=== PATIENT | male | born 1950 | race African-American/Black ===

== ENCOUNTER 2018-12-03 16:45 | Inpatient (IN) ==
[2018-12-03] MEDS ORDERED: BISACODYL 5 MG TABLET PO PRN (18:32)
[2018-12-03] MEDS ORDERED: ZALEPLON 5 MG CAPSULE PO PRN (18:32)
[2018-12-03] MEDS ORDERED: PROMETHAZINE 25 MG TABLET PO PRN (18:32)
[2018-12-03] MEDS ORDERED: DOCUSATE SODIUM 100 MG CAPSULE PO PRN (18:32)
[2018-12-03] MEDS ORDERED: diphenhydrAMINE CAP 25 MG CAPSULE PO PRN (18:32)
[2018-12-03] MEDS ORDERED: guaiFENesin/DM ER 600-30 MG TABLET PO PRN (18:32)
[2018-12-03] MEDS ORDERED: ONDANSETRON 4 MG/2 ML VIAL IV PRN ×2 (18:32→19:47)
[2018-12-03] MEDS ORDERED: MAGNESIUM SULF RIDER 4 GM in PREMIX 1 EACH IV PRN ×2 (18:32→19:47)
[2018-12-03] MEDS ORDERED: MAGNESIUM SULF RIDER 2 GM in PREMIX 1 EACH IV PRN ×2 (18:32→19:47)
[2018-12-03] MEDS ORDERED: hydrALAZINE 20 MG/1 ML VIAL IV PRN (18:39)
[2018-12-03 18:48] LABS: Basophils # 0.1 10*3/uL (0.0-0.2); Basophils % 1.3 % (0.0-0.8); Eosinophils # 0.4 10*3/uL (0.0-0.87); Eosinophils % 6.9 % (0.00-10.9); Hemoglobin 13.6 GM/DL (14.0-18.0); Immature Granulocytes % 0.3 %; Immature Granulocytes Absolute 0.02 #; Lymphocytes # 2.3 10*3/uL (1.4-4.0); Lymphocytes % 37.4 % (21.2-54.2); Mean Corpuscular HGB Conc 30.9 GM/DL (32-36); Mean Corpuscular Volume 91.3 FL (87-102); Monocytes % 12.5 % (1.7-12.7); Neutrophils % 41.6 % (38.7-73.9); Platelet Count 252 T/CUMM (130-400); Red Blood Count 4.82 MC/CUMM (3.8-5.5); Red Cell Distribution Width 14.9 % (9.3-17.3); White Blood Count 6.1 T/CUMM (4-12)
[2018-12-03 18:57] LABS: PT Patient Result 10.9 SECS; Partial Thromboplastin Time 26.9 SECS (0-40)
[2018-12-03 19:07] LABS: Albumin 4.2 G/DL (3.4-5.0); Bilirubin,Total 0.5 MG/DL (0.2-1.0); Calcium 8.8 MG/DL (8.5-10.1); Total Protein 7.6 G/DL (6.4-8.3)
[2018-12-03] MEDS ORDERED: ATROPINE 1 MG/10 ML SYRINGE IV PRN (19:47)
[2018-12-03] MEDS: MAGNESIUM CHLORIDE 64 MG TABLET PO SCH (22:24)
[2018-12-03] MEDS: ASCORBIC ACID 500 MG TABLET PO SCH (22:25)
[2018-12-03] MEDS: SODIUM CHLORIDE 0.9% 1,000 ML IV SCH (23:21)
[2018-12-04] MEDS: dilTIAZem Drip 125 MG/125 ML PREMIX IV SCH (00:19)
[2018-12-04] MEDS: SODIUM CHLORIDE 0.9% 1,000 ML IV SCH ×3 (05:33→19:06)
[2018-12-04] MEDS: PANTOPRAZOLE 40 MG TABLET PO SCH (08:09)
[2018-12-04] MEDS: MAGNESIUM CHLORIDE 64 MG TABLET PO SCH ×2 (08:09→22:37)
[2018-12-04] MEDS: POTASSIUM CHLORIDE 20 MEQ TABLET PO SCH (08:09)
[2018-12-04] MEDS: CHOLECALCIFEROL 5,000 UNIT TABLET PO SCH (08:09)
[2018-12-04] MEDS: ASCORBIC ACID 500 MG TABLET PO SCH ×2 (08:09→22:38)
[2018-12-04] MEDS ORDERED: PANTOPRAZOLE 40 MG TABLET PO SCH (09:00)
[2018-12-04] MEDS ORDERED: TISSUE ADHESIVE 1 EACH APPLICATOR TOP ONE (10:45)
[2018-12-04] MEDS ORDERED: LIDOCAINE 1%/EPI INJ 20 ML VIAL ONE (10:45)
[2018-12-04 10:47] LABS: Bilirubin,Total 0.7 MG/DL (0.2-1.0); Calcium 8.9 MG/DL (8.5-10.1); Total Protein 7.1 G/DL (6.4-8.3)
[2018-12-04] MEDS ORDERED: ceFAZolin 1,000 MG VIAL ONE (11:42)
[2018-12-04] MEDS ORDERED: ceFAZolin 1,000 MG VIAL IRRIG ONE (12:00)
[2018-12-04] MEDS ORDERED: diphenhydrAMINE CAP 25 MG CAPSULE PO ONE (12:00)
[2018-12-04] MEDS ORDERED: DIAZEPAM 5 MG TABLET PO ONE (12:00)
[2018-12-04] MEDS ORDERED: ceFAZolin 1,000 MG in SYRINGE 1 EACH IV ONE (12:00)
[2018-12-04] MEDS ORDERED: MIDAZOLAM 2 MG/2 ML VIAL ONE (12:19)
[2018-12-04] MEDS ORDERED: HYDROmorphone 2 MG/1 ML VIAL ONE (12:19)
[2018-12-04] MEDS ORDERED: METOPROLOL TARTRATE 5 MG/5 ML VIAL IV ONE (12:39)
[2018-12-04] MEDS: DILTIAZEM CD 240 MG CAPSULE PO SCH (13:47)
[2018-12-04] MEDS: ACETAMINOPHEN 325 MG TABLET PO PRN (18:35)
[2018-12-05] MEDS: dilTIAZem Drip 125 MG/125 ML PREMIX IV SCH (04:28)
[2018-12-05] MEDS: SODIUM CHLORIDE 0.9% 1,000 ML IV SCH ×5 (04:29→13:05)
[2018-12-05 05:00] LABS: Basophils # 0.1 10*3/uL (0.0-0.2); Basophils % 0.9 % (0.0-0.8); Eosinophils # 0.3 10*3/uL (0.0-0.87); Eosinophils % 4.8 % (0.00-10.9); Hematocrit 43.4 VOL% (42.0-52.0); Hemoglobin 13.8 GM/DL (14.0-18.0); Immature Granulocytes % 0.3 %; Immature Granulocytes Absolute 0.02 #; Lymphocytes # 1.8 10*3/uL (1.4-4.0); Lymphocytes % 25.7 % (21.2-54.2); Mean Corpuscular HGB Conc 31.8 GM/DL (32-36); Mean Corpuscular Volume 89.3 FL (87-102); Mean Platelet Volume 10.3 FL (9.6-12.0); Monocytes % 11.8 % (1.7-12.7); Neutrophils % 56.5 % (38.7-73.9); Platelet Count 242 T/CUMM (130-400); Red Blood Count 4.86 MC/CUMM (3.8-5.5); Red Cell Distribution Width 14.7 % (9.3-17.3); White Blood Count 7.1 T/CUMM (4-12)
[2018-12-05 05:19] LABS: Calcium 8.7 MG/DL (8.5-10.1); Osmolality,Calculated 283.3 MOS/KG (273-304)
[2018-12-05] MEDS: MAGNESIUM CHLORIDE 64 MG TABLET PO SCH (08:20)
[2018-12-05] MEDS: ACETAMINOPHEN 325 MG TABLET PO PRN (08:20)
[2018-12-05] MEDS: PANTOPRAZOLE 40 MG TABLET PO SCH (08:20)
[2018-12-05] MEDS: CHOLECALCIFEROL 5,000 UNIT TABLET PO SCH (08:20)
[2018-12-05] MEDS: ASCORBIC ACID 500 MG TABLET PO SCH (08:21)
[2018-12-05] MEDS: POTASSIUM CHLORIDE 20 MEQ TABLET PO SCH (08:22)
[2018-12-05] MEDS: DILTIAZEM CD 240 MG CAPSULE PO SCH (08:27)
[2018-12-05] MEDS ORDERED: POTASSIUM CHLORIDE 20 MEQ TABLET PO ONE (10:44)
[2018-12-05 11:58] VITALS: BP 121/79
== END 2018-12-05 13:39 | disposition home or self-care (01) | DRG 243 ==
LOC: N.ED 16:45 → N.EDINP 17:29 → N.TELES 19:36
PROVIDERS: ADMIT Internal Medicine Cardiovascular Disease; ATTEND Internal Medicine Cardiovascular Disease